=== PATIENT | male | born 1995 | race Caucasian/White ===

== ENCOUNTER → 2018-07-25 14:07 | Outpatient (CLI) | payer OTHER, SELFPAY | PROVIDERS: PCP Family Medicine; Visit Provider Family Medicine | DX: G47.30 Sleep apnea, unspecified (principal); R06.83 Snoring | CPT/HCPCS: 95806 ==

== ENCOUNTER → 2019-01-21 10:42 | Outpatient (CLI) | payer OTHER, SELFPAY ==
--- NOTE | 2019-01-21 11:02 | XR_ITS ---
PROCEDURE: XR CLAVICLE LT... 2V from 01/21/2019 XR SHOULDER LT...3v From 01/21/2019 CLINICAL INDICATION: SHOULDER CLICKING Patient injured shoulder 1 year ago pain on and off ever since. Limited range of motion. COMPARISON: CLAVL CLAVICLE-LT from 04/22/2017 FINDINGS: Left clavicle: intact with no fracture no dislocation. AC joint intact. [place] left lung clear Left shoulder: Left shoulder intact. Humeral head and neck intact. Glenohumeral joint intact. Scapula unremarkable IMPRESSION: Negative left clavicle. Negative left shoulder Dictated by: Tommy Amin MD 01/21/2019 14:06 Signed by: <Electronically signed by Tommy Amin MD in [place]> 01/21/2019 14:06
--- NOTE | 2019-01-21 11:03 | XR_ITS ---
PROCEDURE: XR CLAVICLE LT... 2V from 01/21/2019 XR SHOULDER LT...3v From 01/21/2019 CLINICAL INDICATION: SHOULDER CLICKING Patient injured shoulder 1 year ago pain on and off ever since. Limited range of motion. COMPARISON: CLAVL CLAVICLE-LT from 04/22/2017 FINDINGS: Left clavicle: intact with no fracture no dislocation. AC joint intact. [place] left lung clear Left shoulder: Left shoulder intact. Humeral head and neck intact. Glenohumeral joint intact. Scapula unremarkable IMPRESSION: Negative left clavicle. Negative left shoulder Dictated by: Tommy Amin MD 01/21/2019 14:06 Signed by: <Electronically signed by Tommy Amin MD in [place]> 01/21/2019 14:06
== END ==
PROVIDERS: PCP Family Medicine; Visit Provider Nurse Practitioner Family
DX: R29.898 Other symptoms and signs involving the musculoskeletal system (principal)
CPT/HCPCS: 73000; 73030

== ENCOUNTER → 2019-02-17 16:54 | Outpatient (CLI) | payer OTHER, SELFPAY ==
--- NOTE | 2019-02-17 17:08 | XR_ITS ---
PROCEDURE: XR WRIST LT MIN 3V CLINICAL INDICATION: FALL, C/O WRIST PAIN COMPARISON: No exams were available for comparison FINDINGS: No fracture, dislocation, lytic change, or blastic change evident. No significant degenerative change IMPRESSION: No acute findings. Dictated by: Surinder Saenz MD 02/17/2019 17:50 Electronically signed by Surinder Saenz MD in [place] 02/17/2019 17:52
--- NOTE | 2019-02-17 17:09 | XR_ITS ---
PROCEDURE: XR HAND LT MIN 3V CLINICAL INDICATION: FALL, C/O LT HAND PAIN COMPARISON: No exams were available for comparison FINDINGS: No fracture or dislocation. No lytic or blastic change. There is normal mineralization. The joint spaces are well-preserved. No significant degenerative/arthritic changes. No erosive changes evident. Other findings:None. IMPRESSION: No acute findings. Dictated by: Surinder Saenz MD 02/17/2019 17:35 Electronically signed by Surinder Saenz MD in [place] 02/17/2019 17:35
== END ==
PROVIDERS: PCP Nurse Practitioner Family; Visit Provider Nurse Practitioner Family
DX: M25.532 Pain in left wrist (principal)
CPT/HCPCS: 73110; 73130

== ENCOUNTER 2020-10-31 15:15 | Emergency (ER) | payer SELFPAY ==
[2020-10-31 15:30] VITALS: BP 123/87; PULSE 84; RESP 18; TEMP 36.9; O2SAT 98; BMI 42.3
--- NOTE | 2020-10-31 16:04 | HMH.EDUTC ---
[facility] [place] Disposition Clinical Impression: Bronchitis Sinusitis Qualifiers: Sinusitis location: unspecified location Chronicity: unspecified Qualified Code(s): J32.9 - Chronic sinusitis, unspecified Disposition: Home, Self-Care Condition on Discharge: Good Instructions: Sinusitis, DI for Sinusitis, Acute Bronchitis Additional Instructions: ? Start antibiotic today. Be sure to complete entire prescription even if feeling better ? Monitor temp. Tylenol every 4 hours as needed and / or ibuprofen every 6 hours as needed ( As long as your primary care physician has told you that it ok to take both. For fever/aches/pains ER if no less than 101 despite Tylenol or Motrin ? Humidifier/vaporizer or hot steamy shower ? Inhaler every 4-6 hours as needed like we discussed. If unsure how to use it, ask pharmacist to demonstrate how. Should help open airways and improve cough, wheezing, and shortness of breath ? Mucinex during the day for your cough and cough suppressant only at night. Be sure to drink lots of water. Insurance may not cover a prescriptions for mucinex. Might be cheaper to get 400mg tablets and take 2 tablet in the morning, mid-day and evening with lots of water. *Start steroid today. Helps with inflammation therefore, cough and wheezing. Follow directions on the package. Reviewed side effects. Patient reports taking them before. Follow up IMMEDIATELY for new or worsening of symptoms OR no noticeable improvement over the next 48-72 hours. 911 immediately for any life threatening symptoms such as chest pain or difficulty breathing Prescriptions: Albuterol Sulfate [Proventil-HFA 90mcg/puff Inh] 1 - 2 puffs IH Q6HP PRN #1 inh PRN Reason: Shortness Of Breath Transmission Status: Pending to [id number] methylPREDNISolone [Medrol 4mg tab] 4 mg PO DIRECTED #21 tab Transmission Status: Pending to [facility] Azithromycin [Z-Jarocho 250mg Tab] 250 mg PO DIRECTED #6 tab [facility] Referrals: Gomez Collazo MD [Primary Care Provider] - As needed Time of Disposition: 16:10 Medical Decision Making - Jose Ramon Inquiry Pt receiving controlled substance: No Jose Ramon was queried for this patient: No Vital Signs: 10/31/20 15:30 Temperature 98.4 F Temperature Source Oral Pulse Rate [Right Brachial] 84 Respiratory Rate 18 Blood Pressure [Right Arm] 123/87 Blood Pressure Mean [Right Arm] 99 Blood Pressure Source [Right Arm] Automatic Cuff Blood Pressure Position [Right Arm] Sitting 02 Sat by Pulse Oximetry 98 Oxygen Delivery Method Room Air [facility] [place] HPI - General Stated complaint: SOB,Cough Time Seen by Provider: 10/31/20 16:04 Mode of Arrival: Ambulatory Source of Information: Patient Limitations: No Limitations Description of Symptoms (Recalled from Triage Doc. by RN): PATIENT C/O COUGH AND CONGESTION X 3 DAYS HEENT Symptoms (Recalled from RN notes): No Resp Symptoms (Recalled from RN notes): Yes Skin Symptoms (Recalled from RN notes): No MS Symptoms (Recalled from RN notes): No Functional Status (Recalled from RN notes): WNL - History of Present Illness Provider Complaint: Patient states that he has been having drainage in the back of his throat and feels like it is moving into his chest area States that he has history of Bronchitis and sinusitis and feels like he is getting it again States that he was worried it would get worse so he came into get checked - Related Data Home Medications Medication Instructions Recorded Confirmed Cetirizine HCl [Zyrtec] 10 mg PO DAILY 07/06/18 10/31/20 buPROPion HCL [Wellbutrin XL] 150 mg PO DAILY 10/31/20 10/31/20 Previous Rx's Medication Instructions Recorded citalopram 20 mg tablet 30 mg PO DAILY 90 Days #135 tab 10/27/20 Albuterol Sulfate [Proventil-HFA 1 - 2 puffs IH Q6HP PRN #1 inh 10/31/20 90mcg/puff Inh] Azithromycin [Z-Jarocho 250mg Tab] 250 mg PO DIRECTED #6 tab 10/31/20 methylPREDNISolone
[2020-10-31 16:13] VITALS: BP 123/87; PULSE 84; RESP 18; TEMP 36.9; O2SAT 98
== END 2020-10-31 16:16 | disposition home or self-care (01) ==
PROVIDERS: Emergency Provider Nurse Practitioner; PCP Internal Medicine Adolescent Medicine
DX: J20.9 Acute bronchitis, unspecified (principal); J32.9 Chronic sinusitis, unspecified; F41.9 Anxiety disorder, unspecified
CPT/HCPCS: 99202; G0463